=== PATIENT | male | born 1965 | race Caucasian/White ===

== ENCOUNTER 2017-04-05 07:24 | Day surgery (SDC) | payer OTHER ==
[~2017-04-05] VITALS: Ht 180.3 cm; Wt 85.0 kg
[2017-04-05 08:10] VITALS: Ht 180.3 cm; Wt 85.0 kg
[2017-04-05] MEDS ORDERED: ASPI81TA3 PO (08:28)
[2017-04-05] MEDS ORDERED: [UNRECOGNIZED DRUG - OTHER] (08:28)
[2017-04-05] MEDS ORDERED: [UNRECOGNIZED DRUG - OTHER] (08:28)
[2017-04-05] MEDS ORDERED: PROPOFOL 60 ML ONE (08:31)
[2017-04-05 08:44] VITALS: BP 125/77; PULSE 79; RESP 16
--- NOTE | 2017-04-05 09:27 | OPPN ---
Date/Time of Note Date/Time of Note DATE: 04/05/17 TIME: 09:27 Operative Report Preoperative Diagnosis Screening Postoperative Diagnosis Poor prep Internal hemorrhoid Operation/Procedure Performed Colonoscopy Surgeon see signature line diver assistant None Anesthesia: MAC Estimated blood loss: none Transfusion Required none Specimen None Grafts/Implants none Complications none KIM ASHRAF MD Apr 05, 2017 09:27
[2017-04-05 09:50] VITALS: BP 111/71; RESP 20
--- NOTE | 2017-04-06 06:55 | GILP ---
DATE OF PROCEDURE: NAME OF PROCEDURE: Screening colonoscopy. POSTOPERATIVE DIAGNOSES: 1. Colonoscopy all the way to the cecum. 2. Poor prep making the exam suboptimal. 3. Internal hemorrhoids. 4. No gross neoplasm was identified. INDICATION FOR THE PROCEDURE: Mr. Pallavi Fernandes is a 52-year-old male patient who was scheduled fo r screening colonoscopy. The procedure and possible complications were well explained to the patient. The patient understood and consented to the procedure. DESCRIPTION OF PROCEDURE: Under the influence of anesthesia, the colonoscope was carefully introduc ed in the rectum and under direct vision, it was advanced all the way to the cecum. FINDINGS: The patient had poor prep making the exam suboptimal. He was noted to have internal hemo rrhoids. No gross neoplasm was identified. He tolerated the procedure very well and there was no complication from the procedure. At the end o f the procedure, he was awake with stable vital signs and he was discharged home to the care of his family. IMPRESSION: Please see postoperative diagnoses. PLAN: Because of the poor prep and suboptimal nature of the examination, the patient will need repe at colonoscopy with a better preparation in 2 to 3 years. Dictated By: KIM VO/YANIRA Conf#: [id number] DID#: [id number]
== END 2017-04-05 10:32 | disposition home or self-care (01) ==
LOC: GIL 07:24
PROVIDERS: ATTEND Internal Medicine Gastroenterology
DX: Z12.11 Encounter for screening for malignant neoplasm of colon (principal); K64.8 Other hemorrhoids; I10 Essential (primary) hypertension
CPT/HCPCS: 45378; Z7610